=== PATIENT | male | born 2005 | race Caucasian/White ===

== ENCOUNTER 2025-05-28 10:35 | Emergency (ER) | payer MEDICAID ==
[~2025-05-28] VITALS: Ht 180.3 cm; Wt 95.0 kg
[2025-05-28 10:48] VITALS: TEMP 36.8; O2SAT 98
[2025-05-28] MEDS ORDERED: ACET-2708 MT (12:07)
[2025-05-28] MEDS ORDERED: AMOX1TAB16 MT (12:19)
[2025-05-28] MEDS: TETANUS, DIPHTHERIA, PERTUSSIS VAC/PF 0.5ML (>10YR OLD) IM ONE (12:40)
[2025-05-28] MEDS: LIDOCAINE HCL 1% 20ML VIAL INFIL ONE (12:41)
[2025-05-28] MEDS: ACETAMINOPHEN 500MG TABLET PO ONE (12:45)
[2025-05-28] MEDS: KETOROLAC 30MG/ML VIAL IM ONE (12:45)
[2025-05-28 13:45] VITALS: BP 112/64; PULSE 80; RESP 16; O2SAT 100
== END 2025-05-28 13:50 | disposition home or self-care (01) ==
LOC: ER 10:35
DX: S61.210A Laceration without foreign body of right index finger without damage to nail, initial encounter (principal); Q84.6 Other congenital malformations of nails; W23.0XXA Caught, crushed, jammed, or pinched between moving objects, initial encounter; Y93.89 Activity, other specified; Y92.89 Other specified places as the place of occurrence of the external cause; Y99.8 Other external cause status
CPT/HCPCS: 73140; 90715; 12001; 90471; 99283; Z7610 ×2